=== PATIENT | male | born 1990 | race Caucasian/White ===

== ENCOUNTER → 2023-05-08 | Outpatient (CLI) | payer OTHER ==
[~2023-05-08] MED LIST: CYCL10 PO; RXCYCL10 PO; RXHYDACE PO
[2023-05-10 01:08] LABS: CHLAMYDIA TRACHOMATIS, NAA Negative (Negative)
== END | disposition home or self-care (01) ==
LOC: LAB SHORT 13:41 → LAB 13:41
PROVIDERS: Physician Assistant
DX: N50.811 Right testicular pain (principal)
CPT/HCPCS: 87491; 87591